=== PATIENT | female | born 2000 | race African-American/Black ===

== ENCOUNTER 2020-07-22 23:58 | Emergency (ER) | payer OTHER ==
[~2020-07-22] VITALS: Ht 167.6 cm; Wt 57.0 kg
[2020-07-23] MEDS ORDERED: FLOXIN OTIC0.3 % AS (00:39)
[2020-07-23] MEDS ORDERED: AMOXICILLIN500 MG PO (00:39)
[2020-07-23 00:56] VITALS: BP 116/66
== END 2020-07-23 00:56 | disposition home or self-care (01) ==
LOC: ED 23:58
DX: H66.92 Otitis media, unspecified, left ear (principal); K05.10 Chronic gingivitis, plaque induced